=== PATIENT | female | born 1950 | race Caucasian/White ===

== ENCOUNTER → 2016-12-15 | Outpatient (CLI) | payer MEDICARE, OTHER ==
--- NOTE | 2016-12-15 14:30 | Diagnostic Imaging Report ---
Indication: Abnormal recent parathyroid scan Technique: Grayscale and duplex images of the thyroid Comparison: Reference made to a nuclear medicine parathyroid scan dictated 08/11/2016 Findings: There is a hypoechoic nodular area posterior to the right thyroid lobe which measures 9 x 5 x 15 mm in diameter There is an unusual elongated hypoechoic area posterior to the left thyroid lobe which is somewhat ill-defined, measures roughly 10 mm transverse 8 mm AP by 29 mm in length. Right thyroid lobe measures 5 point cm length x 1.8 cm AP. Left thyroid lobe measures 5.4 cm length x 1.6 cm AP. Both thyroid lobes demonstrate normal echogenicity.. Numerous nodules of varying echogenicity are seen scattered throughout both thyroid lobes. The largest of these on the right is in the interpolar region, measures 12 mm long axis dimension, is isoechoic 2 normal thyroid. The largest such lesion on the left measures 14 mm long axis dimension, is in the lower pole. Impression: Hypoechoic 9 x 5 x 15 mm nodule posterior to the right thyroid lobe. Given the positive findings on recent nuclear scan, this is suspicious for a parathyroid adenoma Unusual elongated 29 x 10 x 8 mm hypoechoic area posterior to the left thyroid lobe. Markedly elongated appearance would be very unusual for a parathyroid adenoma. However, the shape does correlate to the shape of the area of abnormal delayed uptake demonstrated on recent parathyroid scan, so this is quite possibly an unusual parathyroid adenoma as well Multiple thyroid nodules, as described 2 of these nodules, one in each lower pole, exceeding 1 cm diameter and therefore tissue sampling should be considered if clinically indicated
== END | disposition home or self-care (01) ==
LOC: ULS 09:36
DX: E04.1 Nontoxic single thyroid nodule (principal)
CPT/HCPCS: 76536